=== PATIENT | female | born 1985 | race African-American/Black ===

== ENCOUNTER 2017-04-26 20:34 | Emergency (ER) | payer SELFPAY ==
[~2017-04-26] VITALS: Ht 165.1 cm; Wt 66.4 kg
[~2017-04-26 20:34] MED LIST: ALBU8.5H3; PREDNISONE; [UNRECOGNIZED DRUG - REMARK]
[2017-04-26] MEDS ORDERED: ADV250 IH (20:39)
[2017-04-26] MEDS ORDERED: AUD NEB (20:39)
[2017-04-26] MEDS ORDERED: ALBUTEROL SULFATE 5 MG/ML 20 ML NEB SOLN [BULK] NEB ONE (20:45)
[2017-04-26] MEDS ORDERED: IPRATROPIUM BROMIDE 0.5 MG/2.5 ML NEB SOLUTION NEB ONE (20:45)
[2017-04-26] MEDS ORDERED: 0.9% SODIUM CHLORIDE 5 ML NEB SOLUTION NEB ONE (20:50)
[2017-04-26] MEDS ORDERED: MethylPREDNISolone SOD SUCC 125 MG/2 ML VIAL IVP ONE (21:30)
[2017-04-26] MEDS ORDERED: AZITHROMYCIN 250 MG TABLET PO ONE (22:00)
[2017-04-26] MEDS ORDERED: HYDROmorphone 2 MG/ML SYRINGE IVP ONE (22:00)
[2017-04-26] MEDS ORDERED: ONDANSETRON HCL 4 MG/2 ML VIAL IVP ONE (22:00)
[2017-04-26] MEDS ORDERED: MORPHINE SULFATE 4 MG/ML SYRINGE IVP ONE (22:00)
[2017-04-26 22:45] VITALS: BP 123/83
== END 2017-04-26 22:46 | disposition home or self-care (01) ==
LOC: EMS 20:35
DX: J45.909 Unspecified asthma, uncomplicated (principal); S29.011A Strain of muscle and tendon of front wall of thorax, initial encounter; F41.9 Anxiety disorder, unspecified; F32.9 Major depressive disorder, single episode, unspecified; X58.XXXA Exposure to other specified factors, initial encounter; Y93.89 Activity, other specified; Y92.89 Other specified places as the place of occurrence of the external cause; Y99.8 Other external cause status
CPT/HCPCS: 71010; 81025; 94644; 96374; 96375; 99285; J2270; J2405; J2930; J7611